=== PATIENT | male | born 1965 | race Caucasian/White ===

== ENCOUNTER 2023-10-31 05:28 | Inpatient (IN) | payer OTHER, SELFPAY ==
[2023-10-31] VITALS (31 sets, daily range): BP systolic 125–194; BP diastolic 88–121; PULSE 63–80; RESP 18–25; TEMP 36.2–36.7; O2SAT 16–100
--- NOTE | ~2023-10-31 | XR_ITS ---
EXAMINATION: XR chest 1V portable DATE: 10/31/2023 14:18 INDICATION: Hyponatremia TECHNIQUE: frontal view of the chest was obtained. COMPARISON: None FINDINGS: The lungs are clear with no focal airspace opacities, pulmonary edema, pleural effusion or pneumothor ax. Heart size is within normal limits for AP technique. Mildly tortuous thoracic aorta. IMPRESSION: 1. No acute cardiopulmonary disease. Reviewed, dictated and finalized at location A.
--- NOTE | 2023-10-31 05:42 | ED_ITS ---
Respiratory Rate 18 10/31/23 05:30 Blood Pressure 170/103 H 10/31/23 05:30 Pulse Oximetry 16 L 10/31/23 05:30 Oxygen Delivery Room Air 10/31/23 05:30 Temperature 97.1 F L 11/02/23 04:44 Pulse Rate 73 11/02/23 04:44 Respiratory Rate 18 11/02/23 04:44 Blood Pressure 134/89 11/02/23 04:44 Pulse Oximetry 98 11/02/23 04:44 Oxygen Delivery Room Air 11/02/23 04:00 <Jeannette Monreal MD - Last Filed: 11/02/23 05:20> Vital Signs Temperature 98.1 F 10/31/23 05:30 Pulse Rate 65 10/31/23 05:30 Respiratory Rate 18 10/31/23 05:30 Blood Pressure 170/103 H 10/31/23 05:30 Pulse Oximetry 16 L 10/31/23 05:30 Oxygen Delivery Room Air 10/31/23 05:30 Temperature 97.1 F L 11/02/23 04:44 Pulse Rate 73 11/02/23 04:44 Respiratory Rate 18 11/02/23 04:44 Blood Pressure 134/89 11/02/23 04:44 Pulse Oximetry 98 11/02/23 04:44 Oxygen Delivery Room Air 11/02/23 04:00 <Woodrow Diane MD - Last Filed: 10/31/23 17:41> MDM - Nausea/Vomiting/Diarrhea MDM Narrative Medical decision making narrative: 58-year-old male presenting with nausea vomiting for the last 3 days, he denies any chest or abdominal pain, no diarrhea, no history of abdominal surgeries. He is pretty well appearing here, abdomen is completely soft and nontender, I will obtain blood work, she nausea,, and obtain an EKG to rule out ACS. EKG here on my independent interpretation showing normal sinus rhythm with first-degree AV block with NV interval 242, QRS 110, QTC 416, axis, rate of 62. Labs returned with a sodium of 109(??!), I did re-evaluate the patient, he has no neurologic symptoms or deficits or recent seizures, denies any medical history of any pituitary or endocrine tumors, he denies drinking too much water that he can think of although his friend does state that he tries to drink a lot of water because he has been tried a diet, he tells me that he last had labs checked about 2 months ago and had not been told there was anything wrong, find it highly for him to have acute hyponatremia without any symptoms, I will therefore repeat a sodium and start IV fluids. Patient will be signed out to oncoming ER physician. <Jeannette Monreal MD - Last Filed: 11/02/23 05:20> Differential Diagnosis Differential diagnosis: Likely dehydration and other <Woodrow Diane MD - Last Filed: 10/31/23 17:41> Lab Data Attestation: I reviewed the patient's lab results. <Woodrow Diane MD - Last Filed: 10/31/23 17:41> Result diagrams: 11/01/23 03:22 11/02/23 00:56 <Jeannette Monreal MD - Last Filed: 11/02/23 05:20> Labs: Lab Results 10/31/23 10/31/23 10/31/23 Range/Units 05:53 06:35 10:16 WBC 5.6 (4.5-10.0) K/mm3 RBC 4.62 (4.6-6.20) M/mm3 Hgb 14.4 (14.0-18.0) g/dL Hct 39.1 L (42.0-52.0) % MCV 84.6 (80-100) fl MCH 31.2 (26-34) pg MCHC 36.8 H (32-36) g/dl RDW 11.9 (11.5-14.5) % Plt Count 310 (150-375) k/mm3 MPV 8.8 (7.4-10.4) fl Immature Gran % (Auto) 0.9 H (0-0.5)
--- NOTE | 2023-10-31 05:42 | ECG_ITS ---
SEE SCANNED COPY FOR CONFIRMED REPORT MTDD
--- NOTE | 2023-10-31 05:42 | ED.NAVMDI ---
HPI - Nausea/Vomiting/Diarrhea General Chief complaint: Nausea/Vomiting/Diarrhea <Jeannette Monreal MD - Last Filed: 11/02/23 05:20> Stated complaint: vomiting for 3 days <Jeannette Monreal MD - Last Filed: 11/02/23 05:20> Time Seen by Provider: 10/31/23 05:38 <Jeannette Monreal MD - Last Filed: 11/02/23 05:20> History of Present Illness HPI Narrative: Patient states that for the last 3 days he has been having nausea vomiting, possibly some slight chills, denies any chest pain, abdominal pain, or diarrhea. He does state that he has been getting over a respiratory infection. <Jeannette Monreal MD - Last Filed: 11/02/23 05:20> Related Data Home medications: Home Medications Medication Instructions Recorded Confirmed cetirizine 10 mg tablet 10 mg PO DAILY 10/31/23 10/31/23 fenofibrate nanocrystallized 145 145 mg PO DAILY 10/31/23 10/31/23 mg tablet montelukast 10 mg tablet 10 mg PO DAILY 10/31/23 10/31/23 omeprazole 40 mg capsule,delayed 40 mg PO DAILY 10/31/23 10/31/23 release <Jeannette Monreal MD - Last Filed: 11/02/23 05:20> Allergies/Adverse reactions: Allergies Allergy/AdvReac Type Severity Reaction Status Date / Time Sulfa (Sulfonamide Allergy Hives Verified 10/31/23 05:29 Antibiotics) <Jeannette Monreal MD - Last Filed: 11/02/23 05:20> Review of Systems Review of Systems: All systems reviewed & are unremarkable except as noted in HPI and below <Jeannette Monreal MD - Last Filed: 11/02/23 05:20> PMFSH Past Medical History Medical History: Medical History Allergic rhinitis Asthma Gastroesophageal reflux disease Hypertriglyceridemia <Jeannette Monreal MD - Last Filed: 11/02/23 05:20> Family History Family History: Family History (Updated 10/31/23 @ 23:07 by Kisha Whitney PA-C) Other Family history non-contributory <Jeannette Monreal MD - Last Filed: 11/02/23 05:20> Social History Social History: Social History Social History: Surrogate medical decision maker: Jailyn Walker, spouse. Code status: Full code. Smoking packs per day: 0 Smoking cigarettes per day: 0.0 Smoking status: Current some day smoker Tobacco type: cigars Alcohol intake: never Substance use: never Do You Feel Safe in your Home?: Yes Lack of Transportation: YES Lack of Food: Never True Current Housing: I Have Housing Concerned About Future Housing: No Difficulty Paying Gas/Electric Bills: No Difficulty Paying for Meds: No Currently Unemployed: YES Education: Bachelor's Degree Difficulty w/ Childcare or Family Care: No Spiritual care concerns: No <Jeannette Monreal MD - Last Filed: 11/02/23 05:20> Exam Narrative: EXAMINATION OF ORGAN SYSTEMS/BODY AREAS: Constitutional: Vital signs per nursing GENERAL:[No acute distress, non-toxic appearing.] HEAD: Normal with no signs of head trauma. EYES: EOMI, conjunctiva normal ENT: Hearing grossly intact LUNGS: Nonlabored breathing. HEART: [Regular rate and rhythm] ABD: [Soft], [nontender to palpation] EXT: Normal range of motion SKIN: [No rashes or lesions.] NEURO: [Alert and oriented x 3. No gross focal sensory or strength deficits.] PSYCH: Normal affect <Jeannette Monreal MD - Last Filed: 11/02/23 05:20> Course Course Emergency Course: Patient was admitted to the IMU with Nephrology consult <Woodrow Diane MD - Last Filed: 10/31/23 17:41> Reevaluation(s) Reevaluation #1: Patient care was signed out to me by the night doc with a repeat BMP pending. Patient's initial sodium was 109. Patient did receive 1 L of lactated Ringer's and on repeat his sodium was 111. Case was discussed with nephrology and Dr. Nunn was consulted. At time of consult he requested no additional fluids after the initial 1 L of lactated Ringer's. Did not recommend hypertonic saline. He did request a repeat BM
[2023-10-31] MEDS: ONDANSETRON INJ 4 MG/2 ML VIAL IV PUSH (05:52)
[2023-10-31 06:12] LABS: Basophils Percent Auto 0.2 % (0.2-1.2); Eosinophils Absolute Auto 0.1 K/mm3 (0-0.3); Eosinophils Percent Auto 1.1 % (0-4.4); Hematocrit 39.1 % (42.0-52.0); Hemoglobin 14.4 g/dL (14.0-18.0); Immature Granulocyte Absolute 0.05 K/mm3 (0.00-0.031); Immature Granulocyte Percent A 0.9 % (0-0.5); Lymphocytes Absolute Auto 0.92 K/mm3 (0.9-3.2); Lymphocytes Percent Auto 16.5 % (18.3-44.2); Mean Corpuscular HGB Conc 36.8 g/dl (32-36); Mean Corpuscular Hemoglobin 31.2 pg (26-34); Mean Corpuscular Volume 84.6 fl (80-100); Mean Platelet Volume 8.8 fl (7.4-10.4); Monocytes Absolute Auto 0.8 K/mm3 (0.1-0.6); Monocytes Percent Auto 13.6 % (2.6-8.5); Neutrophils Absolute Auto 3.8 K/mm3 (1.3-6.7); Neutrophils Percent Auto 67.7 % (45.5-73.1); Platelet Count Result 310 k/mm3 (150-375); Red Blood Count 4.62 M/mm3 (4.6-6.20); Red Cell Distribution Width 11.9 % (11.5-14.5); White Blood Count 5.6 K/mm3 (4.5-10.0)
[2023-10-31 06:28] LABS: Alanine Aminotransferase 35 U/L (6-50); Albumin Level 4.5 g/dL (3.5-5.1); Alkaline Phosphatase 46 U/L (38-126); Anion Gap 8 mmol/L (4-12); Aspartate Amino Transferase 33 U/L (17-59); Bilirubin,Total 1.1 mg/dL (0.2-1.3); Blood Urea Nitrogen 11 mg/dL (9-20); Calcium 8.6 mg/dL (8.4-10.2); Carbon Dioxide 23 mmol/L (22-30); Chloride 78 mmol/L (98-107); Estimated CRCL calculation 117 ml/min; Estimated Glomerular Filt Rate > 60; Glucose 123 mg/dL (65-110); Lipase 144 U/L (23-300); Potassium 3.9 mmol/L (3.4-5.0); Sodium 109 mmol/L (137-145)
[2023-10-31] MEDS: LACTATED RINGERS 1,000 ML 999 ML IV CONT (06:33)
--- NOTE | 2023-10-31 07:08 | PC.NURSE ---
Report to MINAL Nelson.
[2023-10-31 07:32] LABS: Anion Gap 9 mmol/L (4-12); Blood Urea Nitrogen 12 mg/dL (9-20); Carbon Dioxide 22 mmol/L (22-30); Chloride 80 mmol/L (98-107); Estimated CRCL calculation 117 ml/min; Estimated Glomerular Filt Rate > 60; Glucose 117 mg/dL (65-110); Potassium 3.9 mmol/L (3.4-5.0); Sodium 111 mmol/L (137-145)
--- NOTE | 2023-10-31 10:37 | ADMGEN ---
This patient, Al Walker, was admitted to IMU Room 201-01. Patient/family oriented to hospital policies and general routines including ID bracelet, bed and alarms, visiting hours, pain management, procedures, bathroom and other care routines, personal items, smoking policy, room service/diet, and visiting hours. Information on how to activate the Rapid Response Team has been discussed. Patient/Family are encouraged to report perceived risks to care and to ask questions if they do not understand what they are told or what they should do.
[2023-10-31 10:46] LABS: Anion Gap 6 mmol/L (4-12); Blood Urea Nitrogen 10 mg/dL (9-20); Calcium 8.9 mg/dL (8.4-10.2); Carbon Dioxide 25 mmol/L (22-30); Chloride 82 mmol/L (98-107); Estimated CRCL calculation 101 ml/min; Estimated Glomerular Filt Rate > 60; Glucose 106 mg/dL (65-110); Potassium 4.2 mmol/L (3.4-5.0); Sodium 113 mmol/L (137-145)
[2023-10-31 11:11] LABS: Thyroid Stimulating Hormone Reflex 0.623 uIU/mL (0.465-4.68)
--- NOTE | 2023-10-31 12:25 | PM.CNNEP ---
Assessment and Plan Assessment and plan (1) Hyponatremia: Code(s): E87.1 - Hypo-osmolality and hyponatremia Status: Acute Assessment and Plan: presumably acute admission sodium 109meq/L up to 113meq/L following IVFs in ER unclear if nausea/vomiting caused drop in sodium or if drop in sodium caused nausea/vomiting.... risk factors for low sodium: smoking history PPI use recent URI pre-renal factors check urine electrolytes check TSH, cortisol, SPEP, UPEP, and serum/urine osmolality goal of therapy is a change in sodium of 6 - 8meq/L in 24 hours may need to consider 3% saline versus normal saline depending on trend of sodium levels follow repeat sodium levels I will continue follow the patient with you while he remains hospitalized and make further recommendations as deemed necessary. Thank you for allowing me to participate in care of this patient. History of Present Illness Reason for Consult Consult date: 10/31/23 Reason for consult: hyponatremia Chief Complaint Chief complaint: HYPONATREMIA History of Present Illness Narrative: The patient is a 58-year-old male with a past medical history as outlined below who presented to [facility] Emergency Room with complaints of nausea and vomiting. He reports the nausea and vomiting have been going on for last 3 days without any significant improvement despite conservative therapy. He denies any other clinical symptoms with regard to abdominal pain, chest pain, shortness of breath, or diarrhea. As the symptoms continued to progress, he decided to come to the emergency room for further assessment. Workup and evaluation emergency room demonstrated the patient to be hemodynamically stable and in no acute distress. His EKG showed no evidence of ischemia and he clinically appeared reasonably well. His exam was essentially benign but given the persistence of the nausea and vomiting, routine blood work was ordered and he was given IV antiemetics and a trial of IV fluids. His initial chemistry came back with a sodium of 109 mEq per L but with no other critical electrolyte abnormalities. In spite of this severe electrolyte disturbance, he had no neurological symptoms, deficit, or any seizure activity. On further questioning, he denies any history of any type of pituitary or endocrine disorders and he denied any history of excessive free water intake. Furthermore, he reported that he had labs done approximately 2 months ago and was not told of any type of issue or problems with his sodium level. He had repeat labs done in the emergency room following the IV fluids and his sodium level is 111 arguing that the initial reading of 109 was a real value. Given that he had no neurological symptoms or deficits, 3% saline was deferred and he was subsequently admitted to the hospital for further evaluation and therapy. Since his admission, his repeat sodium level has increased to 113 mEq per L without any other specific intervention other than the 1 L of LR they received in the ER. He continues to feel reasonably well with no neurological issues/deficits and his nausea/ vomiting also appears to be doing somewhat better as well. Renal consultation was requested due to his significant hyponatremia. As mentioned above, he reports no history or previous issues/problems with hyponatremia in general. Interestingly, as also noted above, despite his severe hyponatremia, he appears to have no neurological sequelae or issues related to this finding. With regard to risk factors for hyponatremia, he does have a history of smoking and apparently recently recovered from a upper respiratory tract infection and he does take proton pump inhibitors as well. No reported history of thiazide diuretics, lung disease (emphysema/COPD), pain medication/narcotics, brain trauma, anti seizure medications (i.e carbamazepine), BPH/urinary retention, or any history of cancer/maligna
[2023-10-31] MEDS: ACETAMINOPHEN/ASPIRIN/CAFFEINE 250-250-65 MG TABLET 2 TABLET PO (13:00)
--- NOTE | 2023-10-31 14:37 | PM.IMHP ---
H&P: HPI History of Present Illness Date/Time: 10/31/23 14:00 Chief Complaint: Vomiting. Narrative: This is a very pleasant 58-year-old male with asthma, hypertriglyceridemia, and gastroesophageal reflux disease who presented to the emergency department for evaluation of vomiting. The patient provides the following history. He had upper respiratory infection last week and is improving from that but continues to have a dry cough. The last 3 days he has not felt well with ongoing nausea and multiple episodes of nonbloody and nonbilious emesis today. Due to ongoing symptoms he came in for evaluation. He was afebrile on arrival with a blood pressure of 170/103. CBC was unremarkable. BMP was significant for profound hyponatremia with a sodium of 109, potassium 3.9, chloride 78, carbon dioxide 23, BUN 11, creatinine 0.60, glucose 123. Random cortisol was 16.90 and his TSH was 0.23. LFTs were within normal limits. He received 1 L of lactated Ringer's with a repeat sodium of 111. He is being admitted in this setting for close monitoring and further workup. With further questioning he does not recall ever being told that his sodium has been low with his most recent labs being approximately 4 to 5 months ago in his hometown in [place] (the patient is here for work). He drinks about 3 to 4 bottles of water a day and that has not changed. Aside from taking Mucinex he has not had any recent change in medications. He has felt a bit confused or that his thought processes lower but denies other neurologic symptoms. He has no known history of pituitary or endocrine disorders, malignancy, or lung disease aside from mild asthma. He has not noticed a change in his urine output. Weight has remained stable. Review of Systems Review of Systems: 12 systems were reviewed and are negative except for as per HPI. [facility] Past Medical History Medical History Allergic rhinitis Asthma Gastroesophageal reflux disease Hypertriglyceridemia Family History Family History (Updated 10/31/23 @ 23:07 by Kisha Whitney PA-C) Other Family history non-contributory Social History Social History Social History: Surrogate medical decision maker: Jailyn Aaron, spouse. Code status: Full code. Smoking packs per day: 0 Smoking cigarettes per day: 0.0 Smoking status: Current some day smoker Tobacco type: cigars Alcohol intake: never Substance use: never Do You Feel Safe in your Home?: Yes Lack of Transportation: YES Lack of Food: Never True Current Housing: I Have Housing Concerned About Future Housing: No Difficulty Paying Gas/Electric Bills: No Difficulty Paying for Meds: No Currently Unemployed: YES Education: Bachelor's Degree Difficulty w/ Childcare or Family Care: No Spiritual care concerns: No Meds Home Medications and Allergies Home Medications Medication Instructions Recorded Confirmed Type cetirizine 10 mg tablet 10 mg PO DAILY 10/31/23 10/31/23 History fenofibrate nanocrystallized 145 145 mg PO DAILY 10/31/23 10/31/23 History mg tablet montelukast 10 mg tablet 10 mg PO DAILY 10/31/23 10/31/23 History omeprazole 40 mg capsule,delayed 40 mg PO DAILY 10/31/23 10/31/23 History release Allergies Allergy/AdvReac Type Severity Reaction Status Date / Time Sulfa (Sulfonamide Allergy Hives Verified 10/31/23 05:29 Antibiotics) Vital Signs Vital Signs - 24 hr 10/31/23 05:30 10/31/23 05:46 10/31/23 06:01 Temperature 98.1 F Pulse Rate 65 66 63 Respiratory Rate 18 22 H 18 Blood Pressure 170/103 H 169/103 H 160/100 H Pulse Oximetry 16 L 99 98 Oxygen Delivery Room Air 10/31/23 06:16 10/31/23 06:30 10/31/23 06:46 Temperature Pulse Rate 67 71 64 Respiratory Rate 25 H 21 H 24 H Blood Pressure 125/101 H 163/117 H 182/115 H Pulse Oximetry 96 100 100 Oxygen Delivery
[2023-10-31 15:13] LABS: Sodium 111 mmol/L (137-145)
[2023-10-31 15:27] LABS: Eosinophil Urine None Seen % (None Seen); Urine Eos QC 2nd Tech Confirmed
[2023-10-31 16:05] LABS: Creatinine Urine 19.8 mg/dL; Total Protein Urine Random 15 mg/dL; Ur Ttl Prot Creatinine Ratio 0.76 mg/mg (0-0.20); Urea Random Urine 247 MG/DL
[2023-10-31 16:07] LABS: Sodium Urine Random 24 meq/L
[2023-10-31] MEDS: SODIUM CHLORIDE 0.9% IV 1,000 ML 60 ML IV CONT (16:24)
[2023-10-31 20:04] LABS: Sodium 114 mmol/L (137-145)
[2023-10-31] MEDS: ALBUTEROL SULFATE (*SP) AEROSOL 1 PUFF 2 PUFF INHALATION (21:58)
[2023-10-31 23:18] LABS: Sodium 115 mmol/L (137-145)
[2023-11-01] VITALS (15 sets, daily range): BP systolic 99–154; BP diastolic 70–89; PULSE 64–201; RESP 18–20; TEMP 36–36.6; O2SAT 96–100
[2023-11-01 05:05] LABS: Anion Gap 8 mmol/L (4-12); Blood Urea Nitrogen 10 mg/dL (9-20); Calcium 9.3 mg/dL (8.4-10.2); Carbon Dioxide 22 mmol/L (22-30); Chloride 89 mmol/L (98-107); Estimated CRCL calculation 90 ml/min; Estimated Glomerular Filt Rate > 60; Glucose 89 mg/dL (65-110); Magnesium 2.4 mg/dL (1.6-2.3); Potassium 3.7 mmol/L (3.4-5.0); Sodium 119 mmol/L (137-145)
[2023-11-01 05:06] LABS: Sodium 118 mmol/L (137-145)
[2023-11-01] MEDS: DEXTROSE 5% IN WATER 500 ML 250 ML IV CONT ×4 (05:46→18:27)
[2023-11-01] MEDS: ACETAMINOPHEN/ASPIRIN/CAFFEINE 250-250-65 MG TABLET 2 TABLET PO (05:52)
[2023-11-01] MEDS: FENOFIBRATE NANOCRYSTALLIZED 145 MG TABLET PO (08:54)
[2023-11-01] MEDS: MONTELUKAST SODIUM 10 MG TABLET PO (08:54)
[2023-11-01] MEDS: LORATADINE 10 MG TABLET PO (08:54)
[2023-11-01] MEDS: ENOXAPARIN 40 MG/0.4 ML SYRINGE SUB-Q (08:54)
--- NOTE | 2023-11-01 09:16 | PM.IMPN ---
Progress Note: A&P Assessment and Plan (1) Hyponatremia: Code(s): E87.1 - Hypo-osmolality and hyponatremia Status: Acute (2) Gastroesophageal reflux disease: Code(s): K21.9 - Gastro-esophageal reflux disease without esophagitis Status: Acute (3) Hypertriglyceridemia: Code(s): E78.1 - Pure hyperglyceridemia Status: Acute (4) Asthma: Code(s): J45.909 - Unspecified asthma, uncomplicated Status: Acute Plan The patient presented to the emergency department for evaluation of vomiting for several days as detailed in HPI. Labs, imaging, EKG, and all reports were personally reviewed. He has profound hyponatremia which may be related to dehydration from vomiting however the hyponatremia itself could be the cause of nausea and vomiting. Risk factors for hyponatremia include smoking history, PPI use, and perhaps dehydration from vomiting. Sodium is currently 113 after receiving a liter of lactated Ringer's in ED. Dr. Nunn has been consulted for his expert opinion. At this time he is receiving normal saline at 60 mL/hour. Sodium is being monitored closely to ensure that it is correcting at an acceptable rate. Urine electrolytes, urine and serum osmolalities, serum and urine protein electrophoresis, and chest x-ray are pending. Hold PPI for now. 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 yesterday, D5 water is started monitor sodium level every 6 hours urine sodium 24, urine osmolality pending consult construction pit worker, follow recommendations Subjective Date/time seen: 11/01/23 09:16 Interval history: I saw exam patient today, patient is alert, oriented x3, patient denied vision change, focal weakness, abnormal sensation. Patient also denies nausea vomiting diarrhea dysuria. Sodium levels improving Exam Narrative: GENERAL: Pleasant, in no acute distress. Well-nourished. - EYES: EOMI. Anicteric. - HENT: Moist mucous membranes. - LUNGS: Clear to auscultation bilaterally, no wheezing, rhonchi, or rales. - CARDIOVASCULAR: Regular rate and rhythm. No murmur. No JVD. - ABDOMEN: Soft, non-tender and non-distended. No palpable masses. - EXTREMITIES: No edema. Peripheral pulses 2+. Non-tender. - NEUROLOGIC: No focal neurological deficits. CN II-XII grossly intact. - PSYCHIATRIC: Awake, Alert and oriented x 3. Appropriate mood and affect. - SKIN: No rashes or lesions. Warm. - LYMPH: No cervical lymphadenopathy. Objective Data Vital Signs Vital Signs: Vital Signs - 24 hr 10/31/23 12:00 10/31/23 10:00 10/31/23 12:00 Temperature 97.2 F L Pulse Rate 66 80 66 Respiratory Rate 24 H Blood Pressure 150/90 H Pulse Oximetry 100 Oxygen Delivery 10/31/23 12:00 10/31/23 12:00 10/31/23 14:00 Temperature Pulse Rate 66 70 Respiratory Rate 24 H Blood Pressure Pulse Oximetry 100 100 Oxygen Delivery Room Air Room Air 10/31/23 16:00 10/31/23 16:00 10/31/23 15:59 Temperature 97.1 F L Pulse Rate 78 74 Respiratory Rate 20 Blood Pressure 146/88 H Pulse Oximetry 100 Oxygen Delivery Room Air 10/31/23 18:00 10/31/23 20:40 10/31/23 20:00 Temperature 97.6 F Pulse Rate 78 69 Respiratory Rate 18 Blood Pressure 156/96 H Pulse Oximetry 97 Oxygen Delivery Room Air 10/31/23 20:00 10/31/23 21:58 10/31/23 22:00 Temperature Pulse Rate 70 67 Respiratory Rate 18 Blood Pressure Pulse Oximetry Oxygen Delivery 10/31/23 23:49 11/01/23 00:00 11/01/23 00:47 Temperature 97.7 F Pulse Rate 64 78 Respiratory Rate 18 Blood Pressure 123/84 Pulse Oximetry 97 Oxygen Delivery Room Air 11/01/23 02:00 11/01/23 04:00 11/01/23 04:00 Temperature 97.3 F L Pulse Rate 70 68 Respiratory Rate 18 Blood Pressure 99/70 L Pulse Oximetry 97 96 Oxygen Delivery Room Air 11/01/23 04:00 11/01/23 06:00 11/01/23 08:00 Temperature Pulse Rate 201 H 68 86 Respirat
--- NOTE | 2023-11-01 09:33 | PM.PNNEP ---
Progress Note: A&P Assessment and Plan (1) Hyponatremia: Code(s): E87.1 - Hypo-osmolality and hyponatremia Status: Acute Assessment and Plan: acute labs about a year ago with a sodium of 139meq/L (November 2022) admission sodium 109meq/L unclear if nausea/vomiting caused drop in sodium or if drop in sodium caused nausea/vomiting.... risk factors for low sodium: smoking history PPI use recent URI pre-renal factors evaluation to date: urine electrolytes prerenal TSH okay cortisol reasonable serum/urine osmolality and protein electrophoresis pending CXR negative evidence of overcorrection noted: sodium of 109mmol/l at 5:53AM on 10/30...sodium of 119mmol/L at 3:25AM on 10/31 this is a change greater than 8meq/L in 24 hours give D5W IVFs (and possibly DDAVP) to bring sodium closer to 117meq/L level follow repeat sodium levels Will continue to follow. Subjective Date/time seen: 11/01/23 09:33 Interval history: Follow-up for acute hyponatremia. Evidence of overcorrectiion by AM sodium levels necessitating use of D5W IVFs; in spite of low sodium in general, no neurological symptoms or concerns; nursing notes he has been ambulating well and walking the halls without difficulty; no apparent distress noted. Exam Narrative: General: WD/WN male in NAD Heart: normal S1 and S2; no rub Lungs: clear to auscultation Abdomen: soft, nontender, nondistended, positive bowel sounds Extremities: no cyanosis or clubbing; no edema Skin: warm and dry Objective Data Vital Signs Vital Signs: Vital Signs Temp Pulse Resp BP Pulse Ox O2 Del Method 11/01/23 08:00 Room Air 11/01/23 08:00 96.8 F L 84 18 154/81 H 98 11/01/23 08:00 86 11/01/23 06:00 68 11/01/23 04:00 201 H 11/01/23 04:00 96 Room Air 11/01/23 04:00 97.3 F L 68 18 99/70 L 97 11/01/23 02:00 70 11/01/23 00:47 97.7 F 78 18 123/84 97 11/01/23 00:00 64 10/31/23 23:49 Room Air 10/31/23 22:00 67 10/31/23 21:58 18 10/31/23 20:00 70 10/31/23 20:00 Room Air 10/31/23 20:40 97.6 F 69 18 156/96 H 97 10/31/23 18:00 78 10/31/23 15:59 97.1 F L 74 20 146/88 H 100 10/31/23 16:00 Room Air 10/31/23 16:00 78 Intake/Output Intake/Output: Intake & Output 10/29/23 10/30/23 10/31/23 11/01/23 23:59 23:59 23:59 23:59 Intake Total 2030 2919 Balance 2030 2919 Meds/Results Medications: Active Medications Generic Name Dose Route Start Last Admin Trade Name Freq PRN Reason Stop Dose Admin Acetaminophen/Aspirin/Caffeine 2 tablet 10/31/23 11:00 11/01/23 05:52 Acetaminophen/Aspirin/Caffeine 250-250-65 Mg Tablet PO 2 tablet Q6H PRN Administration Pain Albuterol 2 puff 10/31/23 21:33 10/31/23 21:58 Albuterol Sulfate (*Sp) Aerosol 1 Puff INHALATION 2 puff QIDRT PRN Administration Shortness Of Breath Enoxaparin Sodium 40 mg 11/01/23 09:00 11/01/23 08:54 Enoxaparin 40 Mg/0.4 Ml Syringe SUB-Q 40 mg DAILY GWEN Administration Famotidine 20 mg 11/01/23 13:14 11/01/23 13:23 Famotidine 20 Mg Tablet PO 20 mg Q12HR GWEN Administration Fenofibrate 145 mg 11/01/23 09:00 11/01/23 08:54 Fenofibrate Nanocrystallized 145 Mg Tablet PO 145 mg DAILY GWEN Administration Dextrose 500 mls @ 250 mls/hr 11/01/23 13:35 11/01/23 14:00 Dextrose 5% In Water IV CONT 11/01/23 15:34 250 mls/hr .Q2H GWEN Administration Loratadine 10 mg 11/01/23 09:00 11/01/23 08:54 Loratadine 10 Mg Tablet PO 10 mg DAILY GWEN Administration Montelukast Sodium 10 mg 11/01/23 09:00 11/01/23 08:54 Montelukast Sodium 10 Mg Tablet PO 10 mg DAILY GWEN Administration Ondansetron HCl 4 mg 10/31/23 07:58 Ondansetron Inj 4 Mg/2 Ml Vial IV PUSH Q4H PRN Nausea Radiology Results: ITS Impressions Chest X-Ray 10/31/23
--- NOTE | 2023-11-01 09:33 | P.PNNP_ITS ---
Progress Note: A&P Assessment and Plan (1) Hyponatremia: Code(s): E87.1 - Hypo-osmolality and hyponatremia Status: Acute Assessment and Plan: * acute * labs about a year ago with a sodium of 139meq/L (November 2022) * admission sodium 109meq/L * unclear if nausea/vomiting caused drop in sodium or if drop in sodium caused nausea/vomiting.... * risk factors for low sodium: * smoking history * PPI use * recent URI * pre-renal factors * evaluation to date: * urine electrolytes prerenal * TSH okay * cortisol reasonable * serum/urine osmolality and protein electrophoresis pending * CXR negative * evidence of overcorrection noted: * sodium of 109mmol/l at 5:53AM on 10/30...sodium of 119mmol/L at 3:25AM on 10/31 * this is a change greater than 8meq/L in 24 hours * give D5W IVFs (and possibly DDAVP) to bring sodium closer to 117meq/L level * follow repeat sodium levels Will continue to follow. Subjective Date/time seen: 11/01/23 09:33 Interval history: Follow-up for acute hyponatremia. Evidence of overcorrectiion by AM sodium levels necessitating use of D5W IVFs; in spite of low sodium in general, no neurological symptoms or concerns; nursing notes he has been ambulating well and walking the halls without difficulty; no apparent distress noted. Exam Narrative: General: WD/WN male in NAD Heart: normal S1 and S2; no rub Lungs: clear to auscultation Abdomen: soft, nontender, nondistended, positive bowel sounds Extremities: no cyanosis or clubbing; no edema Skin: warm and dry Objective Data Vital Signs Vital Signs: Vital Signs Temp Pulse Resp BP Pulse Ox O2 Del Method 11/01/23 08:00 Room Air 11/01/23 08:00 96.8 F L 84 18 154/81 H 98 11/01/23 08:00 86 11/01/23 06:00 68 11/01/23 04:00 201 H 11/01/23 04:00 96 Room Air 11/01/23 04:00 97.3 F L 68 18 99/70 L 97 11/01/23 02:00 70 11/01/23 00:47 97.7 F 78 18 123/84 97 11/01/23 00:00 64 10/31/23 23:49 Room Air 10/31/23 22:00 67 10/31/23 21:58 18 10/31/23 20:00 70 10/31/23 20:00 Room Air 10/31/23 20:40 97.6 F 69 18 156/96 H 97 10/31/23 18:00 78 10/31/23 15:59 97.1 F L 74 20 146/88 H 100 10/31/23 16:00 Room Air 10/31/23 16:00 78 Intake/Output Intake/Output: Intake & Output 10/29/23 10/30/23 10/31/23 11/01/23 23:59 23:59 23:59 23:59 Intake Total 2030 2920 Balance 2030 2920 Meds/Results Medications: Active Medications Generic Name Dose Route Start Last Admin Trade Name Freq PRN Reason Stop Dose Admin Acetaminophen/Aspirin/Caffeine 2 tablet 10/31/23 11:00 11/01/23 05:52 Acetaminophen/Aspirin/Caffeine 250-250-65 Mg Tablet PO 2 tablet Q6H PRN Administration Pain Albuterol 2 puff 10/31/23 21:33 10/31/23 21:58 Albuterol Sulfate (*Sp) Aerosol 1 Puff INHALATION 2 puff QIDRT PRN Administration Shortness Of Breath Enoxaparin Sodium 40 mg 11/01/23 09:00 11/01/23 08:54
[2023-11-01 09:38] LABS: Hematocrit 39.5 % (42.0-52.0); Hemoglobin 14.2 g/dL (14.0-18.0); Mean Corpuscular HGB Conc 35.9 g/dl (32-36); Mean Corpuscular Hemoglobin 31.3 pg (26-34); Mean Corpuscular Volume 87.2 fl (80-100); Mean Platelet Volume 9.1 fl (7.4-10.4); Platelet Count Result 308 k/mm3 (150-375); Red Blood Count 4.53 M/mm3 (4.6-6.20); Red Cell Distribution Width 12.5 % (11.5-14.5); White Blood Count 5.9 K/mm3 (4.5-10.0)
[2023-11-01 09:51] LABS: Anion Gap 9 mmol/L (4-12); Blood Urea Nitrogen 12 mg/dL (9-20); Carbon Dioxide 25 mmol/L (22-30); Chloride 87 mmol/L (98-107); Estimated CRCL calculation 81 ml/min; Estimated Glomerular Filt Rate > 60; Glucose 57 mg/dL (65-110); Sodium 121 mmol/L (137-145)
[2023-11-01 10:15] LABS: Glucose Point of Care 84 mg/dl (65-105)
[2023-11-01 10:48] LABS: Kappa\\Lambda Light Chains 0.99 (0.26-1.65); Lambda Light Chain 12.2 mg/L (5.7-26.3)
[2023-11-01] MEDS: FAMOTIDINE 20 MG TABLET PO ×2 (13:23→20:33)
[2023-11-01 13:29] LABS: Sodium 121 mmol/L (137-145)
[2023-11-01 17:53] LABS: Sodium 125 mmol/L (137-145)
[2023-11-01] MEDS: DESMOPRESSIN ACETATE 4 MCG/ML AMP 2 MCG SUB-Q (18:28)
[2023-11-01] MEDS: ALBUTEROL SULFATE (*SP) AEROSOL 1 PUFF 2 PUFF INHALATION (20:38)
[2023-11-01 22:23] LABS: Sodium 121 mmol/L (137-145)
[2023-11-02] VITALS (17 sets, daily range): BP systolic 114–161; BP diastolic 77–99; PULSE 67–91; RESP 16–20; TEMP 36.2–36.8; O2SAT 97–100
[2023-11-02 01:16] LABS: Sodium 125 mmol/L (137-145)
[2023-11-02] MEDS: DEXTROSE 5% 1,000 ML 1,000 ML 250 ML IV CONT (02:05)
[2023-11-02 03:34] LABS: Protein, Total 6.4 g/dL (6.1-8.1)
[2023-11-02 06:35] LABS: Anion Gap 6 mmol/L (4-12); Blood Urea Nitrogen 20 mg/dL (9-20); Calcium 8.9 mg/dL (8.4-10.2); Carbon Dioxide 24 mmol/L (22-30); Chloride 94 mmol/L (98-107); Estimated CRCL calculation 95 ml/min; Estimated Glomerular Filt Rate > 60; Glucose 118 mg/dL (65-110); Potassium 4.1 mmol/L (3.4-5.0); Sodium 124 mmol/L (137-145)
[2023-11-02] MEDS: DEXTROSE 5% IN WATER 500 ML 250 ML IV CONT ×2 (07:18→12:00)
[2023-11-02 08:00] LABS: Glucose Point of Care 110 mg/dl (65-105)
[2023-11-02] MEDS: FAMOTIDINE 20 MG TABLET PO ×2 (08:15→21:31)
[2023-11-02] MEDS: LORATADINE 10 MG TABLET PO (08:16)
[2023-11-02] MEDS: FENOFIBRATE NANOCRYSTALLIZED 145 MG TABLET PO (08:16)
[2023-11-02] MEDS: MONTELUKAST SODIUM 10 MG TABLET PO (08:16)
[2023-11-02] MEDS: DESMOPRESSIN ACETATE 4 MCG/ML AMP 1 MCG SUB-Q (08:19)
--- NOTE | 2023-11-02 08:19 | PM.IMPN ---
Progress Note: A&P Assessment and Plan (1) Asthma: Code(s): J45.909 - Unspecified asthma, uncomplicated Status: Acute (2) Hypertriglyceridemia: Code(s): E78.1 - Pure hyperglyceridemia Status: Acute (3) Hyponatremia: Code(s): E87.1 - Hypo-osmolality and hyponatremia Status: Acute (4) Acute hyponatremia: Code(s): E87.1 - Hypo-osmolality and hyponatremia Status: Acute (5) Gastroesophageal reflux disease: Code(s): K21.9 - Gastro-esophageal reflux disease without esophagitis Status: Acute Plan 58-year-old male with history of asthma, hypertriglyceridemia, GERD presenting with vomiting. Admitted on 10/30 for acute hyponatremia. #Acute hyponatremia -based on patient's symptomatology of 3 days of nausea and vomiting feeling dry and dehydrated, hypotonic hyponatremia due to hypovolemia is the most likely diagnosis. The rapid correction status post fluid resuscitation necessitating a DDAVP clamp and back down to D5 water supports this. Urine sodium 24. Urine osmolality and serum osmolality pending. Protein electrophoresis pending Random cortisol 16.9, ACTH stimulation test is a consideration. URI with cough inducing SIADH could also have complicated this hyponatremia. TSH within normal limits. PPI use -checking lipids as he has triglyceridemia as well to rule out pseudo hyponatremia -sodium on admission 109 after 48 hours it is 124 which is appropriate considering an 8mmol/L correction per 24 hours. On 10/31 saline was switched to D5 and DDAVP clamp provided. Nephrology following, will allow Dr. Nunn to dictate next step. Continue BMP q.6 hours. FEN: D5 water at 250 cc/hour. Regular diet GI prophylaxis: His home omeprazole has been changed to famotidine DVT prophylaxis: Lovenox Lines: Peripheral IV Code Status: Full code Dispo: Stable in IMU. Subjective Date/time seen: 11/02/23 08:19 Interval history: Reporting slight dizziness this morning. No other complaints. Review of Systems Review of Systems: All systems reviewed & are unremarkable except as noted in HPI and below (Subjective) Exam Const: General: comfortable and no acute distress Other: A&O x3 Eyes: Pupils: Equal, round and reactive pupils present Neck: Neck: supple Resp: Effort & Inspection: normal respiratory effort Auscultation: clear to auscultation bilaterally Cardio: Rate: regular rate Rhythm: regular rhythm GI: GI Palp: Yes Soft to palpation and No Tenderness to palpation present (GI) Extrem: General: no edema Objective Data Vital Signs Vital Signs: Vital Signs - 24 hr 11/01/23 10:00 11/01/23 12:00 11/01/23 12:00 Temperature 97.4 F L Pulse Rate 75 74 Respiratory Rate 18 Blood Pressure 141/89 H Pulse Oximetry 100 Oxygen Delivery Room Air 11/01/23 12:00 11/01/23 14:00 11/01/23 16:00 Temperature 97.4 F L Pulse Rate 103 H 85 74 Respiratory Rate 18 Blood Pressure 141/89 H Pulse Oximetry 98 Oxygen Delivery 11/01/23 16:00 11/01/23 16:00 11/01/23 18:00 Temperature Pulse Rate 84 94 Respiratory Rate Blood Pressure Pulse Oximetry Oxygen Delivery Room Air 11/01/23 19:55 11/01/23 20:41 11/01/23 20:00 Temperature 97.9 F Pulse Rate 98 86 85 Respiratory Rate 18 20 Blood Pressure 121/78 Pulse Oximetry 100 Oxygen Delivery 11/01/23 20:00 11/01/23 22:00 11/02/23 00:16 Temperature 97.6 F Pulse Rate 85 87 Respiratory Rate 18 Blood Pressure 114/77 Pulse Oximetry 100 Oxygen Delivery Room Air 11/02/23 00:00 11/02/23 00:00 11/02/23 02:00 Temperature Pulse Rate 87 80 Respiratory Rate Blood Pressure Pulse Oximetry Oxygen Delivery Room Air 11/02/23 04:00 11/02/23 04:00 11/02/23 04:44 Temperature 97.1 F L Pulse Rate 76 73 Respiratory Rate 18 Blood Pressure 134/89 Pulse Oximetry 98 Oxygen Delivery Room Air 11/02/23 06:00 11/02/23 08:00 Te
[2023-11-02] MEDS: ENOXAPARIN 40 MG/0.4 ML SYRINGE SUB-Q (08:27)
[2023-11-02 08:36] LABS: Cholesterol 183 mg/dL (0-200); HDL Direct 44 mg/dL; Triglycerides 69 mg/dL (<150)
[2023-11-02 08:47] LABS: LDL Cholesterol Direct 129 mg/dL
[2023-11-02 11:30] LABS: Sodium 120 mmol/L (137-145)
--- NOTE | 2023-11-02 13:46 | P.PNNP_ITS ---
Progress Note: A&P Assessment and Plan (1) Hyponatremia: Code(s): E87.1 - Hypo-osmolality and hyponatremia Status: Acute Assessment and Plan: * acute * labs about a year ago with a sodium of 139meq/L (November 2022) * admission sodium 109meq/L * unclear if nausea/vomiting caused drop in sodium or if drop in sodium caused nausea/vomiting.... * once things are improved we will see what the sodium level is after he is healthy again. * risk factors for low sodium: * smoking history * PPI use * recent URI * pre-renal factors * evaluation to date: * urine electrolytes prerenal * TSH okay * cortisol reasonable * serum/urine osmolality and protein electrophoresis pending * CXR negative * evidence of overcorrection noted: * 10/30 am Na 109 * 10/31 am Na 119 multiple attempts to reduce sodium * 11/01 am Na 124 more ddavp and free water administration * 11/01 11am Na 120 another round of caroline water admin. * next one pending. I talked w [facility] nursing. she will call with the sodium value. * will attempt to get sodium down into the teens. * trying to reduce risk of central pontine myelinolysis. once sodium down to appropriate level, can allow sodium to rise slowly on its own. * need to measure urine output Will continue to follow. Subjective Date/time seen: 11/02/23 13:46 Interval history: Patient feels okay today. Sitting up in the bed in solano's position. in the room. Exam Narrative: General: WD/WN male in NAD Heart: normal S1 and S2; no rub or gallop Lungs: clear to auscultation Abdomen: soft, nontender, nondistended, positive bowel sounds Extremities: no cyanosis or clubbing; no edema Skin: warm and dry without rash Objective Data Vital Signs Vital Signs: Vital Signs - 24 hr 11/01/23 14:00 11/01/23 16:00 11/01/23 16:00 Temperature 97.4 F L Pulse Rate 85 74 Respiratory Rate 18 Blood Pressure 141/89 H Pulse Oximetry 98 Oxygen Delivery Room Air 11/01/23 16:00 11/01/23 18:00 11/01/23 19:55 Temperature 97.9 F Pulse Rate 84 94 98 Respiratory Rate 18 Blood Pressure 121/78 Pulse Oximetry 100 Oxygen Delivery 11/01/23 20:41 11/01/23 20:00 11/01/23 20:00 Temperature Pulse Rate 86 85 Respiratory Rate 20 Blood Pressure Pulse Oximetry Oxygen Delivery Room Air 11/01/23 22:00 11/02/23 00:16 11/02/23 00:00 Temperature 97.6 F Pulse Rate 85 87 87 Respiratory Rate 18 Blood Pressure 114/77 Pulse Oximetry 100 Oxygen Delivery 11/02/23 00:00 11/02/23 02:00 11/02/23 04:00 Temperature Pulse Rate 80 76 Respiratory Rate Blood Pressure Pulse Oximetry Oxygen Delivery Room Air 11/02/23 04:00 11/02/23 04:44 11/02/23 06:00 Temperature 97.1 F L Pulse Rate 73 77 Respiratory Rate 18 Blood Pressure 134/89 Pulse Oximetry 98 Oxygen Delivery Room Air 11/02/23 08:00 11/02/23 08:00 11/02/23 08:00
--- NOTE | 2023-11-02 13:46 | PM.PNNEP ---
Progress Note: A&P Assessment and Plan (1) Hyponatremia: Code(s): E87.1 - Hypo-osmolality and hyponatremia Status: Acute Assessment and Plan: acute labs about a year ago with a sodium of 139meq/L (November 2022) admission sodium 109meq/L unclear if nausea/vomiting caused drop in sodium or if drop in sodium caused nausea/vomiting.... once things are improved we will see what the sodium level is after he is healthy again. risk factors for low sodium: smoking history PPI use recent URI pre-renal factors evaluation to date: urine electrolytes prerenal TSH okay cortisol reasonable serum/urine osmolality and protein electrophoresis pending CXR negative evidence of overcorrection noted: 10/30 am Na 109 10/31 am Na 119 multiple attempts to reduce sodium 11/01 am Na 124 more ddavp and free water administration 11/01 11am Na 120 another round of caroline water admin. next one pending. I talked w [facility]. she will call with the sodium value. will attempt to get sodium down into the teens. trying to reduce risk of central pontine myelinolysis. once sodium down to appropriate level, can allow sodium to rise slowly on its own. need to measure urine output Will continue to follow. Subjective Date/time seen: 11/02/23 13:46 Interval history: Patient feels okay today. Sitting up in the bed in solano's position. in the room. Exam Narrative: General: WD/WN male in NAD Heart: normal S1 and S2; no rub or gallop Lungs: clear to auscultation Abdomen: soft, nontender, nondistended, positive bowel sounds Extremities: no cyanosis or clubbing; no edema Skin: warm and dry without rash Objective Data Vital Signs Vital Signs: Vital Signs - 24 hr 11/01/23 14:00 11/01/23 16:00 11/01/23 16:00 Temperature 97.4 F L Pulse Rate 85 74 Respiratory Rate 18 Blood Pressure 141/89 H Pulse Oximetry 98 Oxygen Delivery Room Air 11/01/23 16:00 11/01/23 18:00 11/01/23 19:55 Temperature 97.9 F Pulse Rate 84 94 98 Respiratory Rate 18 Blood Pressure 121/78 Pulse Oximetry 100 Oxygen Delivery 11/01/23 20:41 11/01/23 20:00 11/01/23 20:00 Temperature Pulse Rate 86 85 Respiratory Rate 20 Blood Pressure Pulse Oximetry Oxygen Delivery Room Air 11/01/23 22:00 11/02/23 00:16 11/02/23 00:00 Temperature 97.6 F Pulse Rate 85 87 87 Respiratory Rate 18 Blood Pressure 114/77 Pulse Oximetry 100 Oxygen Delivery 11/02/23 00:00 11/02/23 02:00 11/02/23 04:00 Temperature Pulse Rate 80 76 Respiratory Rate Blood Pressure Pulse Oximetry Oxygen Delivery Room Air 11/02/23 04:00 11/02/23 04:44 11/02/23 06:00 Temperature 97.1 F L Pulse Rate 73 77 Respiratory Rate 18 Blood Pressure 134/89 Pulse Oximetry 98 Oxygen Delivery Room Air 11/02/23 08:00 11/02/23 08:00 11/02/23 08:00 Temperature 98.2 F Pulse Rate 73 91 Respiratory Rate 16 Blood Pressure 133/91 H Pulse Oximetry 99 Oxygen Delivery Room Air 11/02/23 09:38 11/02/23 10:00 11/02/23 12:00 Temperature Pulse Rate 75 Respiratory Rate Blood Pressure Pulse Oximetry 100 Oxygen Delivery Room Air Room Air 11/02/23 12:00 11/02/23 12:00 Temperature 97.2 F L Pulse Rate 74 79 Respiratory Rate 20 Blood Pressure 161/86 H Pulse Oximetry 97 Oxygen Delivery Intake/Output Intake/Output: Intake & Output 10/30/23 10/31/23 11/01/23 11/02/23 23:59 23:59 23:59 23:59 Intake Total 1 4300 2590 Balance 2031 4300 2590 Meds/Results Medications: Active Medications Generic Name Dose Route Start Last Admin Trade Name Freq PRN Reason Stop Dose Admin Acetaminophen/Aspirin/Caffeine 2 tablet 10/31/23 11:00 11/01/23 05:52 Acetaminophen/Aspirin/Caffeine 250-250-65 Mg Tablet PO 2 tablet Q6H PRN Administration Pain Albuterol 2 puff 10/31/23 21:33 11/01/23 20:3
[2023-11-02 14:08] LABS: Creatinine, Random Urine 22 mg/dL (20-320); Total Protein/Creatinine Ratio NOTE mg/g creat (25-148)
[2023-11-02 15:50] LABS: Sodium 121 mmol/L (137-145)
[2023-11-02] MEDS: DEXTROSE 5% 1,000 ML 1,000 ML 350 ML IV CONT ×2 (16:42→20:22)
[2023-11-02] MEDS: DESMOPRESSIN ACETATE 4 MCG/ML AMP 2 MCG SUB-Q (16:42)
[2023-11-02 20:05] LABS: Sodium 119 mmol/L (137-145)
[2023-11-02] MEDS: ONDANSETRON INJ 4 MG/2 ML VIAL IV PUSH (22:38)
[2023-11-02 23:00] LABS: Sodium 115 mmol/L (137-145)
[2023-11-03] VITALS (14 sets, daily range): BP systolic 132–152; BP diastolic 80–99; PULSE 61–93; RESP 12–20; TEMP 36.2–36.9; O2SAT 98–100
[2023-11-03 01:45] LABS: Sodium 115 mmol/L (137-145)
[2023-11-03] MEDS: ACETAMINOPHEN/ASPIRIN/CAFFEINE 250-250-65 MG TABLET 2 TABLET PO (04:14)
[2023-11-03 04:32] LABS: Glucose Point of Care 96 mg/dl (65-105)
[2023-11-03 05:48] LABS: Albumin Level 3.8 g/dL (3.5-5.1); Anion Gap 5 mmol/L (4-12); Blood Urea Nitrogen 11 mg/dL (9-20); Calcium 8.6 mg/dL (8.4-10.2); Carbon Dioxide 23 mmol/L (22-30); Chloride 84 mmol/L (98-107); Estimated CRCL calculation 147 ml/min; Estimated Glomerular Filt Rate > 60; Glucose 91 mg/dL (65-110); Phosphorus 2.5 mg/dL (2.5-4.5); Potassium 4.2 mmol/L (3.4-5.0); Sodium 112 mmol/L (137-145)
[2023-11-03] MEDS: SODIUM CHLORIDE 3% 300 ML 100 ML IV CONT ×2 (06:31→16:28)
[2023-11-03 07:50] LABS: Anion Gap 6 mmol/L (4-12); Blood Urea Nitrogen 11 mg/dL (9-20); Calcium 8.6 mg/dL (8.4-10.2); Carbon Dioxide 21 mmol/L (22-30); Chloride 85 mmol/L (98-107); Estimated CRCL calculation 147 ml/min; Estimated Glomerular Filt Rate > 60; Glucose 89 mg/dL (65-110); Potassium 4.3 mmol/L (3.4-5.0); Sodium 112 mmol/L (137-145)
[2023-11-03] MEDS: FAMOTIDINE 20 MG TABLET PO ×2 (08:42→20:21)
[2023-11-03] MEDS: LORATADINE 10 MG TABLET PO (08:42)
[2023-11-03] MEDS: ENOXAPARIN 40 MG/0.4 ML SYRINGE SUB-Q (08:42)
[2023-11-03] MEDS: FENOFIBRATE NANOCRYSTALLIZED 145 MG TABLET PO (08:42)
[2023-11-03] MEDS: MONTELUKAST SODIUM 10 MG TABLET PO (08:43)
--- NOTE | 2023-11-03 09:25 | PM.IMPN ---
Progress Note: A&P Assessment and Plan (1) Acute hyponatremia: Code(s): E87.1 - Hypo-osmolality and hyponatremia Status: Acute Plan 58-year-old male with history of asthma, hypertriglyceridemia, GERD presenting with vomiting.? Admitted on 10/30 for acute hyponatremia. #Acute hyponatremia -based on patient's symptomatology of 3 days of nausea and vomiting feeling dry and dehydrated, hypotonic hyponatremia due to hypovolemia is the most likely diagnosis. The rapid correction status post fluid resuscitation necessitating a DDAVP clamp and back down to D5 water supports this.? Urine sodium 24.? Urine osmolality and serum osmolality pending.? Protein electrophoresis pending Random cortisol 16.9, ACTH stimulation test is a consideration.? URI with cough inducing SIADH could also have complicated this hyponatremia. Patient takes a PPI at home as well. TSH within normal limits.? Serum is not lipemic. -sodium on admission 109. Currently it is 112 after fluids were switched to D5 water and DDAVP was administered due to fear of over-correction. On 11/02 the sodium is 112 and a bolus of hypertonic saline has been given. Sodium should come up with this and a correction of 6-8mmol/24hr should be resumed. Continue BMP q.6 hours and nursing team have been instructed to contact Nephrology with results.. FEN:? Hypertonic saline bolus. Regular diet. Fluid restriction. GI prophylaxis:? His home omeprazole has been changed to famotidine DVT prophylaxis:? Lovenox Lines:? Peripheral IV Code Status:? Full code Dispo:? Stable in IMU. Subjective Date/time seen: 11/03/23 09:25 Interval history: at bedside. Patient and upset that the sodium is low today. Otherwise the patient complains of lightheadedness no other complaints. Review of Systems Review of Systems: All systems reviewed & are unremarkable except as noted in HPI and below (Subjective) Exam Const: General: comfortable and no acute distress Other: A&O x3. Eyes: Pupils: Equal, round and reactive pupils present Neck: Neck: supple Resp: Effort & Inspection: normal respiratory effort Auscultation: clear to auscultation bilaterally Cardio: Rate: regular rate Rhythm: regular rhythm Heart sounds: no gallops, no murmurs and no rubs GI: GI Palp: Yes Soft to palpation and No Tenderness to palpation present (GI) Extrem: General: no edema Objective Data Vital Signs Vital Signs: Vital Signs - 24 hr 11/02/23 09:38 11/02/23 10:00 11/02/23 12:00 Temperature Pulse Rate 75 Respiratory Rate Blood Pressure Pulse Oximetry 100 Oxygen Delivery Room Air Room Air 11/02/23 12:00 11/02/23 12:00 11/02/23 14:00 Temperature 97.2 F L Pulse Rate 74 79 76 Respiratory Rate 20 Blood Pressure 161/86 H Pulse Oximetry 97 Oxygen Delivery 11/02/23 16:00 11/02/23 16:00 11/02/23 16:00 Temperature 97.4 F L Pulse Rate 77 78 Respiratory Rate 16 Blood Pressure 143/77 H Pulse Oximetry 98 Oxygen Delivery Room Air 11/02/23 18:00 11/02/23 19:50 11/02/23 20:00 Temperature 97.3 F L Pulse Rate 88 75 Respiratory Rate 20 Blood Pressure 158/88 H Pulse Oximetry 100 Oxygen Delivery Room Air 11/02/23 20:00 11/02/23 22:00 11/02/23 23:23 Temperature Pulse Rate 74 71 Respiratory Rate Blood Pressure Pulse Oximetry Oxygen Delivery Room Air 11/02/23 23:11 11/03/23 00:00 11/03/23 04:00 Temperature 97.9 F 97.9 F Pulse Rate 67 67 73 Respiratory Rate 16 16 Blood Pressure 150/99 H 152/99 H Pulse Oximetry 99 100 Oxygen Delivery 11/02/23 21:50 11/03/23 02:00 11/03/23 04:00 Temperature Pulse Rate 66 73 Respiratory Rate Blood Pressure Pulse Oximetry 99 Oxygen Delivery Room Air 11/03/23 04:00 11/03/23 06:00 11/03/23 08:00 Temperature 97.1 F L Pulse Rate 61 76 Respiratory Rate 12 Blood Pressure 137/80 Pulse Oximetry 100 Oxygen Delivery Room Air
[2023-11-03 11:02] LABS: Sodium 121 mmol/L (137-145)
[2023-11-03] MEDS: DESMOPRESSIN ACETATE 4 MCG/ML AMP 2 MCG SUB-Q ×2 (11:46→20:52)
--- NOTE | 2023-11-03 12:51 | P.PNNP_ITS ---
Progress Note: A&P Assessment and Plan (1) Hyponatremia: Code(s): E87.1 - Hypo-osmolality and hyponatremia Status: Acute Assessment and Plan: * Not chronic. * labs about a year ago with a sodium of 139meq/L (November 2022) * admission sodium 109meq/L * unclear if nausea/vomiting caused drop in sodium or if drop in sodium caused nausea/vomiting. He was likely dry on admission so most likely dehydration lead to the low sodium. However we will know more later when he is ?controlling his own sodium ?. * He is on PPI eyes as an outpatient which could potentially decreased free water excretory capability and potentially cause low sodium. * risk factors for low sodium: * smoking history * PPI use * recent URI * pre-renal factors * evaluation to date: * urine electrolytes prerenal * TSH okay * cortisol reasonable * serum/urine osmolality and protein electrophoresis pending * CXR negative * evidence of overcorrection noted: * 10/30 am Na 109 * 10/31 am Na 119 multiple attempts to reduce sodium * 11/01 am Na 124 more ddavp and free water administration * 11/01 11am Na 120 d5w 250/hrx2h * 330pm Na 121 d5w 350/hr x 2h and ddavp 2mcg IV * 8p 119 d5w 350/hr x 2h * 1030p Na 115 no more d5w, fluid restrict * 130p Na 115 did drop * 5a Na 112 unexplained drop. pt didnt' drink water. ?error? * 11a Na 121 suddenly higher. U.O. almost 4 L from 7a to the phone call at 1130 or so. DDAVP 2mcg ordered. * so pt didn't respond to d5w boluses (usually that bolus will drop sodium by 3 but for the ones yesterday early on they did not affect the sodium at all until the last one which for some reason had a larger effect. * sodium rising from 112 to 121 happened after the3 3% saline (that dose should have only corrected the sodium by 3). Most of the rise in sodium was due to autocorrection again with his very large urine output. it is also possible that the 112 was wrong (drawn above a line?) however it was run twice so I doubt. * So I have given ddavp to slow the water diuresis down and prevent further rapid correction. * his body is vigorously trying to correct the sodium and it happens unpredictably causing the large correction. so I will give ddavp 2mcg every 8 hours to prevent the autocorrection. will leave on fluid restriction for now and let the sodium gradually rise. we can use more 3% saline * * long discussion with patient and Mrs Walker who are understandably frustrated with the sodium issues. I reassured them that the most important thing is to keep him from rapidly correcting to reduce risk of central pontine myelinolysis. * I ordered another sodium level in 3 hours and they will call that as well as his urine output since 11am.. Will continue to follow. more than 30 min was spent in conversation with Dr Yao, patient and Mrs Walker, and with nurses over night with sodium phone calls and orders. Subjective Date/time seen: 11/03/23 12:51 Interval history: Mrs. Walker is in the room. Patient has had variable sodiums overnight. This morning it was down to 112 and he was a little nauseated which was relieved by Zofran. He feels much better today but still has a little bit of fogginess he says. Exam Narrative: General: WD/WN male in NAD Heart: normal S1 and S2; no rub or gallop Lungs: clear bilaterally Abdomen: soft, nontender, nondistended, positive bowel sounds Extremities: no cyanosis or clubbing; no edema
--- NOTE | 2023-11-03 12:51 | PM.PNNEP ---
Progress Note: A&P Assessment and Plan (1) Hyponatremia: Code(s): E87.1 - Hypo-osmolality and hyponatremia Status: Acute Assessment and Plan: Not chronic. labs about a year ago with a sodium of 139meq/L (November 2022) admission sodium 109meq/L unclear if nausea/vomiting caused drop in sodium or if drop in sodium caused nausea/vomiting. He was likely dry on admission so most likely dehydration lead to the low sodium. However we will know more later when he is ?controlling his own sodium ?. He is on PPI eyes as an outpatient which could potentially decreased free water excretory capability and potentially cause low sodium. risk factors for low sodium: smoking history PPI use recent URI pre-renal factors evaluation to date: urine electrolytes prerenal TSH okay cortisol reasonable serum/urine osmolality and protein electrophoresis pending CXR negative evidence of overcorrection noted: 418 am Na 109 10/31 am Na 119 multiple attempts to reduce sodium 11/01 am Na 124 more ddavp and free water administration 11/01 11am Na 120 d5w 250/hrx2h 330pm Na 121 d5w 350/hr x 2h and ddavp 2mcg IV 8p 119 d5w 350/hr x 2h 1030p Na 115 no more d5w, fluid restrict 130p Na 115 did drop 5a Na 112 unexplained drop. pt didnt' drink water. ?error? 11a Na 121 suddenly higher. U.O. almost 4 L from 7a to the phone call at 1130 or so. DDAVP 2mcg ordered. so pt didn't respond to d5w boluses (usually that bolus will drop sodium by 3 but for the ones yesterday early on they did not affect the sodium at all until the last one which for some reason had a larger effect. sodium rising from 112 to 121 happened after the3 3% saline (that dose should have only corrected the sodium by 3). Most of the rise in sodium was due to autocorrection again with his very large urine output. it is also possible that the 112 was wrong (drawn above a line?) however it was run twice so I doubt. So I have given ddavp to slow the water diuresis down and prevent further rapid correction. his body is vigorously trying to correct the sodium and it happens unpredictably causing the large correction. so I will give ddavp 2mcg every 8 hours to prevent the autocorrection. will leave on fluid restriction for now and let the sodium gradually rise. we can use more 3% saline long discussion with patient and Mrs Walker who are understandably frustrated with the sodium issues. I reassured them that the most important thing is to keep him from rapidly correcting to reduce risk of central pontine myelinolysis. I ordered another sodium level in 3 hours and they will call that as well as his urine output since 11am.. Will continue to follow. more than 30 min was spent in conversation with Dr Yao, patient and Mrs Walker, and with nurses over night with sodium phone calls and orders. Subjective Date/time seen: 11/03/23 12:51 Interval history: Mrs. Walker is in the room. Patient has had variable sodiums overnight. This morning it was down to 112 and he was a little nauseated which was relieved by Zofran. He feels much better today but still has a little bit of fogginess he says. Exam Narrative: General: WD/WN male in NAD Heart: normal S1 and S2; no rub or gallop Lungs: clear bilaterally Abdomen: soft, nontender, nondistended, positive bowel sounds Extremities: no cyanosis or clubbing; no edema Skin: No rash Objective Data Vital Signs Vital Signs: Vital Signs - 24 hr 11/02/23 14:00 11/02/23 16:00 11/02/23 16:00 Temperature 97.4 F L Pulse Rate 76 77 78 Respiratory Rate 16 Blood Pressure 143/77 H Pulse Oximetry 98 Oxygen Delivery 11/02/23 16:00 11/02/23 18:00 11/02/23 19:50 Temperature Pulse Rate 88 Respiratory Rate Blood Pressure Pulse Oximetry Oxygen Delivery Room Air Room Air 11/02/23 20:00
[2023-11-03 15:37] LABS: Sodium 119 mmol/L (137-145)
[2023-11-03 20:38] LABS: Sodium 123 mmol/L (137-145)
[2023-11-03] MEDS: SALINE LOCK FLUSH 10 ML IV PUSH (20:59)
[2023-11-04] VITALS (13 sets, daily range): BP systolic 135–161; BP diastolic 84–94; PULSE 64–90; RESP 16–20; TEMP 35.6–36.2; O2SAT 97–100
[2023-11-04 01:15] LABS: Sodium 120 mmol/L (137-145)
[2023-11-04 01:50] LABS: Sodium 123 mmol/L (137-145)
[2023-11-04] MEDS: SALINE LOCK FLUSH 10 ML IV PUSH ×3 (05:10→22:21)
[2023-11-04] MEDS: DESMOPRESSIN ACETATE 4 MCG/ML AMP 2 MCG SUB-Q ×3 (05:10→22:17)
[2023-11-04 05:39] LABS: Albumin Level 3.9 g/dL (3.5-5.1); Anion Gap 4 mmol/L (4-12); Blood Urea Nitrogen 15 mg/dL (9-20); Calcium 9.3 mg/dL (8.4-10.2); Carbon Dioxide 27 mmol/L (22-30); Chloride 92 mmol/L (98-107); Estimated CRCL calculation 96 ml/min; Estimated Glomerular Filt Rate > 60; Glucose 95 mg/dL (65-110); Phosphorus 2.9 mg/dL (2.5-4.5); Potassium 4.6 mmol/L (3.4-5.0); Sodium 123 mmol/L (137-145)
[2023-11-04] MEDS: LORATADINE 10 MG TABLET PO (09:23)
[2023-11-04] MEDS: MONTELUKAST SODIUM 10 MG TABLET PO (09:25)
[2023-11-04] MEDS: FENOFIBRATE NANOCRYSTALLIZED 145 MG TABLET PO (09:25)
[2023-11-04] MEDS: FAMOTIDINE 20 MG TABLET PO ×2 (09:25→22:18)
[2023-11-04] MEDS: ENOXAPARIN 40 MG/0.4 ML SYRINGE SUB-Q (09:25)
--- NOTE | 2023-11-04 09:43 | PM.PNNEP ---
Progress Note: A&P Assessment and Plan (1) Hyponatremia: Code(s): E87.1 - Hypo-osmolality and hyponatremia Status: Acute Assessment and Plan: acute labs about a year ago with a sodium of 139meq/L (November 2022) admission sodium 109meq/L unclear if nausea/vomiting caused drop in sodium or if drop in sodium caused nausea/vomiting suspect he was dehydrated on admission which led to the low sodium level risk factors for low sodium: smoking history PPI use recent URI pre-renal factors evaluation to date: urine electrolytes prerenal TSH okay cortisol reasonable serum/urine osmolality and protein electrophoresis pending CXR negative evidence of overcorrection noted: Na 109 on admission (10/30) 10/31 Na 119 by AM labs -- multiple attempts to reduce sodium instituted 11/01 Na 124 by AM labs -- more ddavp and free water administration given 11/01 @ 11am - Na 120; given d5w 250/hr x 2hr @ 330pm - Na 121; given d5w 350/hr x 2h + DDAVP 2mcg IV x 1 @ 8p - Na 119; d5w 350/hr x 2hr @ 1030pm - Na 115; no more d5w, fluid restriction instituted @ 1:30am - Na 115; no intervention 11/02 @ 5:00am - Na 112; unexplained drop 11/02 @ 11:00am - Na 121 suddenly higher; DDAVP 2mcg IV x 1 given it does not appear her is very responsive to D5W fluid bolues usually that bolus will drop sodium by 3mmol/L but for the ones on 11/01 early on, they did not affect the sodium at all until the last one which for some reason had a larger effect sodium rising from 112 to 121 on 11/02 happened after the3 3% saline that dose should have only corrected the sodium by 3mmol/L most of the rise in sodium was due to autocorrection again with his very large urine output it would seen his body is vigorously trying to correct the sodium and it happens unpredictably causing the large correction. s currently getting DDAVP 2mcg every 8 hours to prevent the autocorrection will leave on fluid restriction for now and let the sodium gradually rise if necessary, we can use more/give more 3% saline follow trend of repeat sodium levels Long and extensive discussion with patient and his at bedside regarding the above interventions. Subjective Date/time seen: 11/04/23 9:43 Interval history: Follow-up for acute hyponatremia. Chart reviewed since last seen -- sodium has been fluctuating to extremes due interventions noted over the weekend in an effort to prevent overcorrection and CPM; even by recent testing, his sodium is still slightly higher than ideal considering his sodium dropped to 112mmol/L yesterday at ~ 5:00AM; in spite of these fluctuations in his sodium, his mental status/neurological status remains stable. Exam Narrative: General: WD/WN male in NAD Heart: normal S1 and S2; no rub Lungs: clear bilaterally Abdomen: soft, nontender, nondistended, positive bowel sounds Extremities: no cyanosis or clubbing; no edema Skin: no nodules Objective Data Vital Signs Vital Signs: Vital Signs Temp Pulse Resp BP Pulse Ox O2 Del Method 11/04/23 09:39 96.3 F L 86 20 136/84 97 11/04/23 08:00 86 11/04/23 08:00 Room Air 11/04/23 07:51 96.0 F L 85 18 161/94 H 99 11/04/23 06:00 64 11/04/23 04:10 97.1 F L 69 16 141/94 H 98 11/04/23 04:00 69 11/04/23 04:00 Room Air 11/04/23 02:00 75 11/04/23 00:00 Room Air 11/04/23 00:00 77 11/03/23 23:20 98.3 F 81 18 132/84 99 11/03/23 22:00 81 11/03/23 20:00 83 11/03/23 20:00 Room Air 11/03/23 19:53 98.3 F 93 18 137/90 99 11/03/23 18:00 82 11/03/23 16:00 98.4 F 73 20 151/94 H 100 11/03/23 16:00 70 11/03/23 16:00 Room Air 11/03/23 14:00 88 Intake/Output Intake/Output: Intake & Output 11/01/23 11/02/23 11/03/23 11/04/23 23:59 23:59 23:59 23:59 Intake Total 5817 7226
--- NOTE | 2023-11-04 09:43 | P.PNNP_ITS ---
Progress Note: A&P Assessment and Plan (1) Hyponatremia: Code(s): E87.1 - Hypo-osmolality and hyponatremia Status: Acute Assessment and Plan: * acute * labs about a year ago with a sodium of 139meq/L (November 2022) * admission sodium 109meq/L * unclear if nausea/vomiting caused drop in sodium or if drop in sodium caused nausea/vomiting * suspect he was dehydrated on admission which led to the low sodium level * risk factors for low sodium: * smoking history * PPI use * recent URI * pre-renal factors * evaluation to date: * urine electrolytes prerenal * TSH okay * cortisol reasonable * serum/urine osmolality and protein electrophoresis pending * CXR negative * evidence of overcorrection noted: * Na 109 on admission (10/30) * 10/31 Na 119 by AM labs -- multiple attempts to reduce sodium instituted * 11/01 Na 124 by AM labs -- more ddavp and free water administration given * 11/01 @ 11am - Na 120; given d5w 250/hr x 2hr * @ 330pm - Na 121; given d5w 350/hr x 2h + DDAVP 2mcg IV x 1 * @ 8p - Na 119; d5w 350/hr x 2hr * @ 1030pm - Na 115; no more d5w, fluid restriction instituted * @ 1:30am - Na 115; no intervention * 11/02 @ 5:00am - Na 112; unexplained drop * 11/02 @ 11:00am - Na 121 suddenly higher; DDAVP 2mcg IV x 1 given * it does not appear her is very responsive to D5W fluid bolues * usually that bolus will drop sodium by 3mmol/L but for the ones on 11/01 early on, they did not affect the sodium at all until the last one which for some reason had a larger effect * sodium rising from 112 to 121 on 11/02 happened after the3 3% saline * that dose should have only corrected the sodium by 3mmol/L * most of the rise in sodium was due to autocorrection again with his very large urine output * it would seen his body is vigorously trying to correct the sodium and it happe ns unpredictably causing the large correction. s * currently getting DDAVP 2mcg every 8 hours to prevent the autocorrection * will leave on fluid restriction for now and let the sodium gradually rise * if necessary, we can use more/give more 3% saline * follow trend of repeat sodium levels Long and extensive discussion with patient and his at bedside regarding the above interventions. Subjective Date/time seen: 11/04/23 9:43 Interval history: Follow-up for acute hyponatremia. Chart reviewed since last seen -- sodium has been fluctuating to extremes due interventions noted over the weekend in an effort to prevent overcorrection and CPM; even by recent testing, his sodium is still slightly higher than ideal considering his sodium dropped to 112mmol/L yesterday at ~ 5:00AM; in spite of these fluctuations in his sodium, his mental status/neurological status remains stable. Exam Narrative: General: WD/WN male in NAD Heart: normal S1 and S2; no rub Lungs: clear bilaterally Abdomen: soft, nontender, nondistended, positive bowel sounds Extremities: no cyanosis or clubbing; no edema Skin: no nodules Objective Data Vital Signs Vital Signs: Vital Signs Temp Pulse Resp BP Pulse Ox O2 Del Method 11/04/23 09:39 96.3 F L 86 20 136/84 97 11/04/23 08:00 86 11/04/23 08:00 Room Air 11/04/23 07:51 96.0 F L 85 18 161/94 H 99 11/04/23 06:00 64 11/04/23 04:10 97.1 F L 69 16 141/94 H 98
--- NOTE | 2023-11-04 09:56 | PM.IMPN ---
Progress Note: A&P Assessment and Plan (1) Acute hyponatremia: Code(s): E87.1 - Hypo-osmolality and hyponatremia Status: Acute Plan 58-year-old male with history of asthma, hypertriglyceridemia, GERD presenting with vomiting.? Admitted on 10/30 for acute hyponatremia. #Acute hyponatremia -based on patient's symptomatology of 3 days of nausea and vomiting feeling dry and dehydrated, hypotonic hyponatremia due to hypovolemia is the most likely diagnosis. The rapid correction status post fluid resuscitation necessitating a DDAVP clamp and back down to D5 water supports this.? Urine sodium 24.? Urine osmolality and serum osmolality pending.? Protein electrophoresis pending Random cortisol 16.9, ACTH stimulation test is a consideration.? URI with cough inducing SIADH could also have complicated this hyponatremia. Patient takes a PPI at home as well. TSH within normal limits.? Serum is not lipemic. -sodium on admission 109. Currently it is 112 after fluids were switched to D5 water and DDAVP was administered due to fear of over-correction. On 11/02 the sodium is 112 and a bolus of hypertonic saline has been given. Sodium should come up with this and a correction of 6-8mmol/24hr should be resumed. Continue BMP q.6 hours and nursing team have been instructed to contact Nephrology with results.. 11/03: enter received hypertonic saline yesterday, sodium 122 a.m. and monitor sodium every 4 hour, management per clinical safety specialist FEN:? Hypertonic saline bolus. Regular diet. Fluid restriction. GI prophylaxis:? His home omeprazole has been changed to famotidine DVT prophylaxis:? Lovenox Lines:? Peripheral IV Code Status:? Full code Dispo:? Stable in IMU. Subjective Date/time seen: 11/04/23 09:56 Interval history: I saw and examined patient in presents of patient's . Patient denies headache, focal weakness, vision change, chest pain, shortness of breath, abdomen pain, nausea vomiting diarrhea Exam Narrative: GENERAL: Pleasant, in no acute distress. Well-nourished. - EYES: EOMI. Anicteric. - HENT: Moist mucous membranes. - LUNGS: Clear to auscultation bilaterally, no wheezing, rhonchi, or rales. - CARDIOVASCULAR: Regular rate and rhythm. No murmur. No JVD. - ABDOMEN: Soft, non-tender and non-distended. No palpable masses. - EXTREMITIES: No edema. Peripheral pulses 2+. Non-tender. - NEUROLOGIC: No focal neurological deficits. CN II-XII grossly intact. - PSYCHIATRIC: Awake, Alert and oriented x 3. Appropriate mood and affect. - SKIN: No rashes or lesions. Warm. - LYMPH: No cervical lymphadenopathy. Objective Data Vital Signs Vital Signs: Vital Signs - 24 hr 11/03/23 10:00 11/03/23 12:00 11/03/23 12:00 Temperature 97.1 F L Pulse Rate 73 81 Respiratory Rate 20 Blood Pressure 141/90 H Pulse Oximetry 100 Oxygen Delivery Room Air 11/03/23 12:00 11/03/23 14:00 11/03/23 16:00 Temperature Pulse Rate 80 88 Respiratory Rate Blood Pressure Pulse Oximetry Oxygen Delivery Room Air 11/03/23 16:00 11/03/23 16:00 11/03/23 18:00 Temperature 98.4 F Pulse Rate 70 73 82 Respiratory Rate 20 Blood Pressure 151/94 H Pulse Oximetry 100 Oxygen Delivery 11/03/23 19:53 11/03/23 20:00 11/03/23 20:00 Temperature 98.3 F Pulse Rate 93 83 Respiratory Rate 18 Blood Pressure 137/90 Pulse Oximetry 99 Oxygen Delivery Room Air 11/03/23 22:00 11/03/23 23:20 11/04/23 00:00 Temperature 98.3 F Pulse Rate 81 81 77 Respiratory Rate 18 Blood Pressure 132/84 Pulse Oximetry 99 Oxygen Delivery 11/04/23 00:00 11/04/23 02:00 11/04/23 04:00 Temperature Pulse Rate 75 Respiratory Rate Blood Pressure Pulse Oximetry Oxygen Delivery Room Air Room Air 11/04/23 04:00 11/04/23 04:10 11/04/23 06:00 Temperature 97.1 F L Pulse Rate 69 69 64 Respiratory Rate 16 Blood Pressure 141/94 H Pulse Oximetry 98 Oxygen Delivery 11/04/23
[2023-11-04 10:00] LABS: Sodium 122 mmol/L (137-145)
[2023-11-04 13:47] LABS: Sodium 123 mmol/L (137-145)
--- NOTE | 2023-11-04 14:45 | PC.NURSE ---
Dr. Guo okay with downgrade medical floor if Nephrology agrees. Spoke with Dr. Nunn. Pt has been neurologically stable with no issues despite low Na. Ok with medical downgrade.
[2023-11-04 15:39] LABS: Osmolality, Urine 181 mOsm/kg (50-1200)
[2023-11-04 17:44] LABS: Sodium 121 mmol/L (137-145)
[2023-11-04 20:23] LABS: Sodium 125 mmol/L (137-145)
--- NOTE | 2023-11-04 20:41 | PC.NURSE ---
This patient, Al Walker, was transferred to [facility] on 11/04/23 at 2040. Personal belongings sent with patient. Report given to MINAL Duron. Appropriate documentation sent with patient.
[2023-11-05 00:42] LABS: Sodium 122 mmol/L (137-145)
[2023-11-05 04:24] VITALS: BP 129/81; PULSE 74; RESP 16; TEMP 36.3; O2SAT 100
[2023-11-05] MEDS: DESMOPRESSIN ACETATE 4 MCG/ML AMP 2 MCG SUB-Q (04:29)
[2023-11-05 06:29] LABS: Albumin Level 4.1 g/dL (3.5-5.1); Anion Gap 5 mmol/L (4-12); Blood Urea Nitrogen 17 mg/dL (9-20); Carbon Dioxide 26 mmol/L (22-30); Chloride 92 mmol/L (98-107); Estimated CRCL calculation 108 ml/min; Estimated Glomerular Filt Rate > 60; Glucose 90 mg/dL (65-110); Phosphorus 2.2 mg/dL (2.5-4.5); Potassium 4.1 mmol/L (3.4-5.0); Sodium 123 mmol/L (137-145)
[2023-11-05] MEDS: MONTELUKAST SODIUM 10 MG TABLET PO (08:00)
[2023-11-05] MEDS: LORATADINE 10 MG TABLET PO (08:00)
[2023-11-05] MEDS: FAMOTIDINE 20 MG TABLET PO (08:00)
[2023-11-05] MEDS: FENOFIBRATE NANOCRYSTALLIZED 145 MG TABLET PO (08:00)
[2023-11-05] MEDS: SALINE LOCK FLUSH 10 ML IV PUSH (08:01)
--- NOTE | 2023-11-05 08:13 | PM.IMPN ---
Progress Note: A&P Assessment and Plan (1) Acute hyponatremia: Code(s): E87.1 - Hypo-osmolality and hyponatremia Status: Acute Plan 58-year-old male with history of asthma, hypertriglyceridemia, GERD presenting with vomiting.? Admitted on 10/30 for acute hyponatremia. #Acute hyponatremia -based on patient's symptomatology of 3 days of nausea and vomiting feeling dry and dehydrated, hypotonic hyponatremia due to hypovolemia is the most likely diagnosis. The rapid correction status post fluid resuscitation necessitating a DDAVP clamp and back down to D5 water supports this.? Urine sodium 24.? Urine osmolality and serum osmolality pending.? Protein electrophoresis pending Random cortisol 16.9, ACTH stimulation test is a consideration.? URI with cough inducing SIADH could also have complicated this hyponatremia. Patient takes a PPI at home as well. TSH within normal limits.? Serum is not lipemic. -sodium on admission 109. Currently it is 112 after fluids were switched to D5 water and DDAVP was administered due to fear of over-correction. On 11/02 the sodium is 112 and a bolus of hypertonic saline has been given. Sodium should come up with this and a correction of 6-8mmol/24hr should be resumed. Continue BMP q.6 hours and nursing team have been instructed to contact Nephrology with results.. 11/03: enter received hypertonic saline yesterday, sodium 122 a.m. and monitor sodium every 4 hour, management per boat painter 11/04: Na 122. patient wishes to be discharged home today, I have discussed the case with boat painter, boat painter will continue the normal saline IV, repeat sodium chloride about 2:00 p.m. today. If sodium continues to improve, we plan to discharge patient per boat painter recommendation hypophosphatemia phosphorus 2.2, start Neutra-Phos 1 pack 11/04 FEN:? Hypertonic saline bolus. Regular diet. Fluid restriction. GI prophylaxis:? His home omeprazole has been changed to famotidine DVT prophylaxis:? Lovenox Lines:? Peripheral IV Code Status:? Full code Dispo:? Stable in IMU. Subjective Date/time seen: 11/05/23 08:13 Interval history: I saw and examined patient in presents of patient's . Patient denies headache, focal weakness, vision change, chest pain, shortness of breath, abdomen pain, nausea vomiting diarrhea, labs reviewed, sodium 122 Exam Narrative: GENERAL: Pleasant, in no acute distress. Well-nourished. - EYES: EOMI. Anicteric. - HENT: Moist mucous membranes. - LUNGS: Clear to auscultation bilaterally, no wheezing, rhonchi, or rales. - CARDIOVASCULAR: Regular rate and rhythm. No murmur. No JVD. - ABDOMEN: Soft, non-tender and non-distended. No palpable masses. - EXTREMITIES: No edema. Peripheral pulses 2+. Non-tender. - NEUROLOGIC: No focal neurological deficits. CN II-XII grossly intact. - PSYCHIATRIC: Awake, Alert and oriented x 3. Appropriate mood and affect. - SKIN: No rashes or lesions. Warm. - LYMPH: No cervical lymphadenopathy. Objective Data Vital Signs Vital Signs: Vital Signs - 24 hr 11/04/23 10:00 11/04/23 11:39 11/04/23 12:00 Temperature 96.3 F L Pulse Rate 79 86 Respiratory Rate 20 Blood Pressure 136/84 Pulse Oximetry 97 Oxygen Delivery Room Air 11/04/23 12:00 11/04/23 14:00 11/04/23 16:12 Temperature 96.4 F L Pulse Rate 90 86 78 Respiratory Rate 20 Blood Pressure 135/90 Pulse Oximetry 100 Oxygen Delivery 11/04/23 20:55 11/05/23 04:24 Temperature 97.2 F L 97.3 F L Pulse Rate 85 74 Respiratory Rate 16 16 Blood Pressure 157/90 H 129/81 Pulse Oximetry 100 100 Oxygen Delivery Intake/Output Intake/Output: Intake & Output 11/02/23 11/03/23 11/04/23 11/05/23 23:59 23:59 23:59 23:59 Intake Total 4620 0510 440 Output Total 600 8000 0475 Balance 9715 -0522 -853 Meds/Results Medications: Active Medications Generic Name Dose Route Start Last Admin Trade Name Freq PRN Reason Stop Dose Admin A
--- NOTE | 2023-11-05 09:45 | PM.PNNEP ---
Progress Note: A&P Assessment and Plan (1) Hyponatremia: Code(s): E87.1 - Hypo-osmolality and hyponatremia Status: Acute Assessment and Plan: acute labs about a year ago with a sodium of 139meq/L (November 2022) admission sodium 109meq/L unclear if nausea/vomiting caused drop in sodium or if drop in sodium caused nausea/vomiting suspect he was dehydrated on admission which led to the low sodium level risk factors for low sodium: smoking history PPI use recent URI pre-renal factors evaluation to date: urine electrolytes prerenal TSH okay cortisol reasonable serum/urine osmolality and protein electrophoresis pending CXR negative evidence of overcorrection noted: Na 109 on admission (10/30) 10/31 Na 119 by AM labs -- multiple attempts to reduce sodium instituted 11/01 Na 124 by AM labs -- more ddavp and free water administration given 11/01 @ 11am - Na 120; given d5w 250/hr x 2hr @ 330pm - Na 121; given d5w 350/hr x 2h + DDAVP 2mcg IV x 1 @ 8p - Na 119; d5w 350/hr x 2hr @ 1030pm - Na 115; no more d5w, fluid restriction instituted @ 1:30am - Na 115; no intervention 11/02 @ 5:00am - Na 112; unexplained drop 11/02 @ 11:00am - Na 121 suddenly higher; DDAVP 2mcg IV x 1 given it does not appear he is very responsive to D5W fluid bolues usually that bolus will drop sodium by 3mmol/L but for the ones on 11/01 early on, they did not affect the sodium at all until the last one which for some reason had a larger effect sodium rising from 112 to 121 on 11/02 happened after the 3% saline that dose should have only corrected the sodium by 3mmol/L most of the rise in sodium was due to autocorrection again with his very large urine output it would seen his body is vigorously trying to correct the sodium and it happens unpredictably causing the large correction. s hold DDAVP today trial of normal saline today to try get sodium level closer to 130 follow trend of repeat sodium levels It would appear he is insistent on leaving today -- I recommend he stay to ensure his sodium is improving but he reports he has outpatient follow-up with his PCP tomorrow. Will continue to follow. Subjective Date/time seen: 11/05/23 09:45 Interval history: Follow-up for acute hyponatremia. Sodium level relatively stable in the last 24 hours so DDAVP discontinued and started on a trial of normal saline; no apparent distress noted; want to be discharged to return home to [place] with follow-up with his PCP; no neurological issues noted. Exam Narrative: General: WD/WN male in NAD Heart: normal S1 and S2; no rub Lungs: clear bilaterally Abdomen: soft, nontender, nondistended, positive bowel sounds Extremities: no cyanosis or clubbing; no edema Skin: warm and dry Objective Data Vital Signs Vital Signs: Vital Signs Temp Pulse Resp BP Pulse Ox O2 Del Method 11/05/23 08:30 Room Air 11/05/23 04:24 97.3 F L 74 16 129/81 100 11/04/23 20:55 97.2 F L 85 16 157/90 H 100 11/04/23 16:12 96.4 F L 78 20 135/90 100 11/04/23 14:00 86 Intake/Output Intake/Output: Intake & Output 11/02/23 11/03/23 11/04/23 11/05/23 23:59 23:59 23:59 23:59 Intake Total 4620 2570 440 480 Output Total 600 4275 1425 400 Balance 4020 1705 -985 80 Meds/Results Medications: Active Medications Generic Name Dose Route Start Last Admin Trade Name Freq PRN Reason Stop Dose Admin Acetaminophen/Aspirin/Caffeine 2 tablet 10/31/23 11:00 11/03/23 04:14 Acetaminophen/Aspirin/Caffeine 250-250-65 Mg Tablet PO 2 tablet Q6H PRN Administration Pain Albuterol 2 puff 10/31/23 21:33 11/01/23 20:38 Albuterol Sulfate (*Sp) Aerosol 1 Puff INHALATION 2 puff QIDRT PRN Administration Shortness Of Breath Desmopressin Acetate 2 mcg 11/03/23 20:00 11/05/23 04:29 Desmopressin Acetate 4 Mcg/Ml Amp SUB-Q 2 mcg
--- NOTE | 2023-11-05 09:45 | P.PNNP_ITS ---
Progress Note: A&P Assessment and Plan (1) Hyponatremia: Code(s): E87.1 - Hypo-osmolality and hyponatremia Status: Acute Assessment and Plan: * acute * labs about a year ago with a sodium of 139meq/L (November 2022) * admission sodium 109meq/L * unclear if nausea/vomiting caused drop in sodium or if drop in sodium caused nausea/vomiting * suspect he was dehydrated on admission which led to the low sodium level * risk factors for low sodium: * smoking history * PPI use * recent URI * pre-renal factors * evaluation to date: * urine electrolytes prerenal * TSH okay * cortisol reasonable * serum/urine osmolality and protein electrophoresis pending * CXR negative * evidence of overcorrection noted: * Na 109 on admission (10/30) * 10/31 Na 119 by AM labs -- multiple attempts to reduce sodium instituted * 11/01 Na 124 by AM labs -- more ddavp and free water administration given * 11/01 @ 11am - Na 120; given d5w 250/hr x 2hr * @ 330pm - Na 121; given d5w 350/hr x 2h + DDAVP 2mcg IV x 1 * @ 8p - Na 119; d5w 350/hr x 2hr * @ 1030pm - Na 115; no more d5w, fluid restriction instituted * @ 1:30am - Na 115; no intervention * 11/02 @ 5:00am - Na 112; unexplained drop * 11/02 @ 11:00am - Na 121 suddenly higher; DDAVP 2mcg IV x 1 given * it does not appear he is very responsive to D5W fluid bolues * usually that bolus will drop sodium by 3mmol/L but for the ones on 11/01 early on, they did not affect the sodium at all until the last one which for some reason had a larger effect * sodium rising from 112 to 121 on 11/02 happened after the 3% saline * that dose should have only corrected the sodium by 3mmol/L * most of the rise in sodium was due to autocorrection again with his very la rge urine output * it would seen his body is vigorously trying to correct the sodium and it happens unpredictably causing the large correction. s * hold DDAVP today * trial of normal saline today to try get sodium level closer to 130 * follow trend of repeat sodium levels It would appear he is insistent on leaving today -- I recommend he stay to ensure his sodium is improving but he reports he has outpatient follow-up with his PCP tomorrow. Will continue to follow. Subjective Date/time seen: 11/05/23 09:45 Interval history: Follow-up for acute hyponatremia. Sodium level relatively stable in the last 24 hours so DDAVP discontinued and started on a trial of normal saline; no apparent distress noted; want to be discharged to return home to [place] with follow-up with his PCP; no neurological issues noted. Exam Narrative: General: WD/WN male in NAD Heart: normal S1 and S2; no rub Lungs: clear bilaterally Abdomen: soft, nontender, nondistended, positive bowel sounds Extremities: no cyanosis or clubbing; no edema Skin: warm and dry Objective Data Vital Signs Vital Signs: Vital Signs Temp Pulse Resp BP Pulse Ox O2 Del Method 11/05/23 08:30 Room Air 11/05/23 04:24 97.3 F L 74 16 129/81 100 11/04/23 20:55 97.2 F L 85 16 157/90 H 100 11/04/23 16:12 96.4 F L 78 20 135/90 100 11/04/23 14:00 86 Intake/Output Intake/Output: Intake & Output 11/02/23 11/03/23 11/04/23 11/05/23 23:59 23:59 23:59 23:59
[2023-11-05] MEDS: POTASSIUM/PHOSPHORUS/SODIUM 1.5 GM PACKET 1 PACKET PO (09:47)
[2023-11-05] MEDS: SALINE LOCK FLUSH 20 ML IV PUSH (10:04)
[2023-11-05 10:23] LABS: Sodium 122 mmol/L (137-145)
[2023-11-05] MEDS: SODIUM CHLORIDE 0.9% IV 1,000 ML 75 ML IV CONT (11:10)
--- NOTE | 2023-11-05 13:56 | PM.DS ---
DS: Admitting Diagnosis Discharge Date 11/05/23 DS: Summary Time Spent with Patient Time attestation: Total time spent providing and/or coordinating discharge services: DS: Data Data Completed and Pending Labs on day of discharge: Labs from last 24 hours 11/05/23 11/05/23 11/05/23 10:04 05:50 00:30 Sodium 122 L 123 L 122 L Potassium 4.1 Chloride 92 L Carbon Dioxide 26 Anion Gap 5 BUN 17 Creatinine 0.70 Estim Creat Clear Calc 108 Estimated GFR > 60 Glucose 90 Calcium 9.0 Phosphorus 2.2 L Albumin 4.1 Urine Osmolality 11/04/23 11/04/23 10/31/23 20:13 17:30 12:29 Sodium 125 L 121 L Potassium Chloride Carbon Dioxide Anion Gap BUN Creatinine Estim Creat Clear Calc Estimated GFR Glucose Calcium Phosphorus Albumin Urine Osmolality 181 Discharge Plan Discharge Consulting providers: Bill Nunn Patient Disposition: Home, Self-Care Patient Instructions: Antibiotic Form, How to Stop Smoking (DC), Hyponatremia (GEN), Cigarette Smoking and Your Health (GEN) Stand Alone Forms: General Discharge Information Discharge Medications: No Action cetirizine 10 mg tablet 10 mg PO DAILY fenofibrate nanocrystallized 145 mg tablet 145 mg PO DAILY omeprazole 40 mg capsule,delayed release(DR/EC) 40 mg PO DAILY montelukast 10 mg tablet 10 mg PO DAILY Date of admission: 10/31/23 10:48 Primary Care Provider: UNKNOWN,DOCTOR Admitting Provider: Celi Hua Attending physician on admission: Celi Hua Condition: Serious
--- NOTE | 2023-11-05 13:59 | PM.DS ---
DS: Admitting Diagnosis Discharge Date 11/04 Admitting Diagnosis #Acute hyponatremia DS: Discharge Diagnosis Discharge Diagnosis (1) Acute hyponatremia: Code(s): E87.1 - Hypo-osmolality and hyponatremia Status: Acute DS: Summary Hospital Course Hospital Course: This is a very pleasant 58-year-old male with asthma, hypertriglyceridemia, and gastroesophageal reflux disease who presented to the emergency department for evaluation of vomiting. The patient provides the following history. He had upper respiratory infection last week and is improving from that but continues to have a dry cough. The last 3 days he has not felt well with ongoing nausea and multiple episodes of nonbloody and nonbilious emesis today. Due to ongoing symptoms he came in for evaluation. He was afebrile on arrival with a blood pressure of 170/103. CBC was unremarkable. BMP was significant for profound hyponatremia with a sodium of 109, potassium 3.9, chloride 78, carbon dioxide 23, BUN 11, creatinine 0.60, glucose 123. Random cortisol was 16.90 and his TSH was 0.23. LFTs were within normal limits. He received 1 L of lactated Ringer's with a repeat sodium of 111. He is being admitted in this setting for close monitoring and further workup. With further questioning he does not recall ever being told that his sodium has been low with his most recent labs being approximately 4 to 5 months ago in his hometown in [place] (the patient is here for work). He drinks about 3 to 4 bottles of water a day and that has not changed. Aside from taking Mucinex he has not had any recent change in medications. He has felt a bit confused or that his thought processes lower but denies other neurologic symptoms. He has no known history of pituitary or endocrine disorders, malignancy, or lung disease aside from mild asthma. He has not noticed a change in his urine output. Weight has remained stable. #Acute hyponatremia -based on patient's symptomatology of 3 days of nausea and vomiting feeling dry and dehydrated, hypotonic hyponatremia due to hypovolemia is the most likely diagnosis. The rapid correction status post fluid resuscitation necessitating a DDAVP clamp and back down to D5 water supports this.? Urine sodium 24.? Urine osmolality and serum osmolality pending.? Protein electrophoresis pending Random cortisol 16.9, ACTH stimulation test is a consideration.? URI with cough inducing SIADH could also have complicated this hyponatremia. Patient takes a PPI at home as well. TSH within normal limits.? Serum is not lipemic. -sodium on admission 109. Currently it is 112 after fluids were switched to D5 water and DDAVP was administered due to fear of over-correction. On 11/02 the sodium is 112 and a bolus of hypertonic saline has been given. Sodium should come up with this and a correction of 6-8mmol/24hr should be resumed. Continue BMP q.6 hours and nursing team have been instructed to contact Nephrology with results.. 11/03: enter received hypertonic saline yesterday, sodium 122 a.m. and monitor sodium every 4 hour, management per [employer] 11/04: Na 122. patient wishes to be discharged home today, I have discussed the case with [facility] [employer], [facility] [employer] will continue the normal saline IV, repeat sodium chloride about 2:00 p.m. today. If sodium continues to improve, we plan to discharge patient per [employer] recommendation hypophosphatemia phosphorus 2.2, start Neutra-Phos 1 pack 11/04 Time Spent with Patient Time attestation: Total time spent providing and/or coordinating discharge services: Exam Narrative: GENERAL: Pleasant, in no acute distress. Well-nourished. - EYES: EOMI. Anicteric. - HENT: Moist mucous membranes. - LUNGS: Clear to auscultation bilaterally, no wheezing, rhonchi, or rales. - CARDIOVASCULAR: Regular rate and rhythm. No murmur. No JVD. - ABDOMEN: Soft, non-tender and non-distended. No palpable masses. - EXTREMITIES: No edema. Peripheral p
[2023-11-05 14:00] VITALS: BP 161/97; PULSE 77; RESP 14; TEMP 36.5; O2SAT 100
[2023-11-05 14:36] LABS: Phosphorus 2.6 mg/dL (2.5-4.5); Sodium 121 mmol/L (137-145)
[2023-11-05] MEDS: NEOMYCIN/POLYMYXIN/BACITRACIN OINTMENT PACKET 1 PACKET (15:07)
[2023-11-05 15:13] LABS: Abnormal Protein Band 1 0.1 g/dL (NONE DETECTED); Alpha 1 Globulin 0.3 g/dL (0.2-0.3); Alpha 2 Globulin 0.7 g/dL (0.5-0.9); Beta 1 Globulin 0.5 g/dL (0.4-0.6); Gamma Globulin 0.7 g/dL (0.8-1.7)
== END 2023-11-05 15:40 | disposition home or self-care (01) | DRG 641 ==
LOC: ANHED 08:01 → ANHIMU 08:48 → ANH3MEDSUR 11-04 20:42
PROVIDERS: Emergency Medicine; General Practice; Internal Medicine Nephrology; Physician Assistant; Admitting Provider Family Medicine; Emergency Provider Emergency Medicine; Visit Provider Hospitalist
DX: E87.1 Hypo-osmolality and hyponatremia (principal); E86.1 Hypovolemia; E78.1 Pure hyperglyceridemia; J45.909 Unspecified asthma, uncomplicated; K21.9 Gastro-esophageal reflux disease without esophagitis; E83.39 Other disorders of phosphorus metabolism; Z72.0 Tobacco use
CPT/HCPCS: 36415; 36569; 71045; 80048; 80053; 80061; 80069; 81050; 82533; 82570; 82948; 83690; 83735; 83883; 83930; 83935; 84100; 84155; 84156; 84165; 84166; 84295; 84300; 84443; 84540; 85025; 85027; 85999; 86334; 86335; 93005; 94640; 96361; 96374; 99285; A9270; C1751; G0378; J1650; J2405; J2597; J7030; J7060; J7070; J7120; J7131